=== PATIENT | male | born 1980 | race Two or more races ===

== ENCOUNTER 2017-07-23 06:12 | Emergency (ER) | payer SELFPAY ==
--- NOTE | 2017-07-23 06:37 | ER Document Report ---
ED General - General Chief Complaint: Chest Pain Stated Complaint: CHEST PAIN Time Seen by Provider: 07/23/17 06:28 Mode of Arrival: Wheelchair Information source: Patient Notes: 37 yr old male no previous medical hx presents with complaints of midsternal pressure 1 hour ago. pt states it is a 10/10 heaviness. denies any fevers or chills, admits to nausea. Pt moved here 3 weeks ago. Pt denies any previous similar episodes. TRAVEL OUTSIDE OF THE [place] IN LAST 30 DAYS: No - HPI Onset: Just prior to arrival Onset/Duration: Sudden Quality of pain: Pressure Severity: Severe Pain Level: 5 Associated symptoms: Chest pain, Nausea Exacerbated by: Denies Relieved by: Denies Similar symptoms previously: No Recently seen / treated by doctor: No - Related Data Allergies/Adverse Reactions: No Known Allergies Allergy (Unverified 07/23/17 06:22) Past Medical History - Social History Smoking Status: Current Every Day Smoker Cigarette use (# per day): Yes Chew tobacco use (# tins/day): No Smoking Education Provided: No Frequency of alcohol use: None Drug Abuse: None Family History: CAD - grandfather, Other Review of Systems - Review of Systems Notes: REVIEW OF SYSTEMS: CONSTITUTIONAL : Denies fever, chills, or sweats. Denies recent illness. EENT: Denies eye, ear, throat, or mouth pain or symptoms. Denies nasal or sinus congestion or discharge. Denies throat, tongue, or mouth swelling or difficulty swallowing. CARDIOVASCULAR: Denies chest pain. Denies palpitations or racing or irregular heart beat. Denies ankle edema. RESPIRATORY: Denies cough, cold, or chest congestion. Denies shortness of breath, difficulty breathing, or wheezing. GASTROINTESTINAL: Denies abdominal pain or distention. Denies nausea, vomiting , or diarrhea. Denies blood in vomitus, stools, or per rectum. Denies black, tarry stools. Denies constipation. GENITOURINARY: Denies difficulty urinating, painful urination, burning, frequency, blood in urine, or discharge. MUSCULOSKELETAL: Denies back or neck pain or stiffness. Denies joint pain or swelling. SKIN: Denies rash, lesions or sores. HEMATOLOGIC : Denies easy bruising or bleeding. LYMPHATIC: Denies swollen, enlarged glands. NEUROLOGICAL: Denies confusion or altered mental status. Denies passing out or loss of consciousness. Denies dizziness or lightheadedness. Denies headache. Denies weakness or paralysis or loss of use of either side. Denies problems with gait or speech. Denies sensory loss, numbness, or tingling. Denies seizures. PSYCHIATRIC: Denies anxiety or stress. Denies depression, suicidal ideation, or homicidal ideation. ALL OTHER SYSTEMS REVIEWED AND NEGATIVE. Dictation was performed using [employer] voice recognition software PHYSICAL EXAMINATION: GENERAL: Well-appearing, well-nourished and in no acute distress. HEAD: Atraumatic, normocephalic. EYES: Pupils equal round and reactive to light, extraocular movements intact, sclera anicteric, conjunctiva are normal. ENT: Nares patent, oropharynx clear without exudates. Moist mucous membranes. NECK: Normal range of motion, supple without lymphadenopathy LUNGS: Breath sounds clear to auscultation bilaterally and equal. No wheezes rales or rhonchi. HEART: Regular rate and rhythm without murmurs ABDOMEN: Soft, nontender, nondistended abdomen. No guarding, no rebound. No masses appreciated. Musculoskeletal: Normal range of motion, no pitting or edema. No cyanosis. NEUROLOGICAL: Cranial nerves grossly intact. Normal speech, normal gait. Normal sensory, motor exams PSYCH: Normal mood, normal affect. SKIN: Warm, Dry, normal turgor, no rashes or lesions noted. Physical Exam - Vital signs Vitals: Pulse Resp BP Pulse Ox 66 20 128/95 H 99 07/23/17 06:22 07/23/17 06:22 07/23/17 06:22 07/23/17 06:22 Course - Re-evaluation Re-evalutation: 07/23/17 06:34 Upon receiving ekg i immediately called a stemi alert, pt evaluated, stemi meds ordered [facility] paged 07/23/17 06:48 Dr longo called back and acepted patient for transfer tnk, aspirin, lovenox, nitro and plavix given , - Vital Signs Vital signs: Temp Pulse Resp BP Pulse Ox 66 20 128/95 H 99 07/23/17 06:22 07/23/17 06:22 07/23/17 06:22 07/23/17 06:22 - Laboratory Result Diagrams: 07/23/17 06:25 07/23/17 06:25 Laboratory results interpreted by me: 07/23/17 06:25 RDW 14.7 H Lymphocytes % 46.0 H Critical Care Note - Critical Care Note Total time excluding time spent on procedures (mins): 31 Comments: minutes of critical care time spent in direct contact evaluating and reevaluating the patient, treating symptoms, reviewing labs and studies and speaking with family and consultants excluding any procedures Discharge - Discharge Clinical Impression: STEMI (ST elevation myocardial infarction) Qualifiers: Involved coronary artery: LAD coronary artery Qualified Code(s): I21.02 - ST elevation (STEMI) myocardial infarction involving left anterior descending coronary artery Condition: Critical Disposition: [facility]
[2017-07-23] MEDS ORDERED: ASPIRIN 81 MG TABLET, CHEWABLE ONE ×2 (06:39→09:20)
[2017-07-23] MEDS ORDERED: ASPIRIN 81 MG TABLET, CHEWABLE PO ONE (06:40)
[2017-07-23] MEDS ORDERED: MORPHINE SULFATE 10 MG/ML INJ ONE (06:48)
[2017-07-23 06:49] LABS: ABSOLUTE BASOPHILS # (AUTO) 0.1 10^3/uL (0.0-0.2); ABSOLUTE EOSINOPHILS # (AUTO) 0.2 10^3/uL (0.0-0.6); ABSOLUTE LYMPHOCYTES (AUTO) 4.5 10^3/uL (0.5-4.7); ABSOLUTE MONOCYTES (AUTO) 0.8 10^3/uL (0.1-1.4); ABSOLUTE NEUT (AUTO) 4.1 10^3/uL (1.7-8.2); BASOPHILS % (AUTO) 1.1 % (0-2); EOSINOPHILS % (AUTO) 2.5 % (0-6); HEMATOCRIT 48.5 % (37.9-51.0); HEMOGLOBIN 16.2 g/dL (13.5-17.0); HGB HCT DIFFERENCE 0.1; MEAN CORPUSCULAR HEMOGLOBIN 29.7 pg (27.0-33.4); MEAN CORPUSCULAR HGB CONC 33.4 g/dL (32.0-36.0); MEAN CORPUSCULAR VOLUME 89 fl (80-97); MONOCYTES % (AUTO) 8.3 % (3-13); RED BLOOD COUNT 5.44 10^6/uL (4.35-5.55); RED CELL DISTRIBUTION WIDTH 14.7 % (11.5-14.0); SEGMENTED NEUTROPHILS % (AUTO) 42.1 % (42-78); WHITE BLOOD COUNT 9.8 10^3/uL (4.0-10.5)
[2017-07-23 06:50] LABS: PROTHROMBIN TIME 11.8 SEC (11.4-15.4)
[2017-07-23 06:59] LABS: ALANINE AMINOTRANSFERASE 57 U/L (21-72); ALBUMIN 4.7 g/dL (3.5-5.0); ALKALINE PHOSPHATASE 88 U/L (38-126); ASPARTATE AMINO TRANSFERASE 36 U/L (17-59); BILIRUBIN,DIRECT 0.3 mg/dL (0.0-0.4); BILIRUBIN,TOTAL 0.4 mg/dL (0.2-1.3); BLOOD UREA NITROGEN 12 mg/dL (7-20); CALCIUM 9.7 mg/dL (8.4-10.2); CARBON DIOXIDE 22 mmol/L (22-30); CREATINE KINASE 147 U/L (55-170); CREATININE RESULT 0.87 mg/dL (0.52-1.25); GLUCOSE 163 mg/dL (75-110); POTASSIUM 3.7 mmol/L (3.6-5.0); TOTAL PROTEIN 7.7 g/dL (6.3-8.2)
[2017-07-23 07:07] LABS: ANION GAP 19 (5-19); CHLORIDE 103 mmol/L (98-107); SODIUM 143.6 mmol/L (137-145)
[2017-07-23 07:09] VITALS: BP 133/108
[2017-07-23 07:17] LABS: CREATINE KINASE MB 1.21 ng/mL (<4.55); TROPONIN I 0.03 ng/mL
--- NOTE | 2017-07-23 08:35 | RADIOLOGY REPORT (SQ) ---
EXAM DESCRIPTION: CHEST SINGLE VIEW COMPLETED DATE/TIME: 07/23/2017 6:47 am REASON FOR STUDY: STEMI COMPARISON: None. EXAM PARAMETERS: NUMBER OF VIEWS: One view. TECHNIQUE: Single frontal radiographic view of the chest acquired. RADIATION DOSE: NA LIMITATIONS: None. FINDINGS: LUNGS AND PLEURA: No opacities, masses or pneumothorax. No pleural effusion. MEDIASTINUM AND HILAR STRUCTURES: No masses. Contour normal. HEART AND VASCULAR STRUCTURES: Heart normal in size. Normal vasculature. BONES: No acute findings. HARDWARE: Defibrillator pads and EKG leads over the chest. OTHER: No other significant finding. IMPRESSION: NO ACUTE RADIOGRAPHIC FINDING IN THE CHEST. TECHNICAL DOCUMENTATION: JOB ID: [id number] [employer]- All Rights Reserved
--- NOTE | 2017-07-23 08:46 | EKG REPORT ---
SEVERITY:- ABNORMAL ECG - SINUS RHYTHM CONSIDER ANTEROLATERAL INJURY, EARLY ACUTE INFARCT VS LVH VS ACUTE PERICARDITIS, CLINICAL CORRELATION NEEDED BORDERLINE PROLONGED QT INTERVAL : Confirmed by: Ke Ozuna 23-Jul-2017 08:45:46
--- NOTE | 2017-07-23 08:48 | EKG REPORT ---
SEVERITY:- ABNORMAL ECG - SINUS RHYTHM ANTEROLATERAL INJURY, EARLY ACUTE INFARCT VS ACUTE PERICARDITIS, CLINICAL CORRELATION REQUIRED PROLONGED QT INTERVAL : Confirmed by: Ke Ozuna 23-Jul-2017 08:48:06
--- NOTE | 2017-07-23 08:50 | EKG REPORT ---
SEVERITY:- ABNORMAL ECG - SINUS ARRHYTHMIA, RATE 47-66 ANTEROLATERAL INJURY, EARLY ACUTE INFARCT WITH RECIPROCAL ST DEPRESSION INFERIOR LEADS. : Confirmed by: Ke Ozuna 23-Jul-2017 08:49:31
--- NOTE | 2017-07-23 08:51 | EKG REPORT ---
SEVERITY:- ABNORMAL ECG - SINUS RHYTHM PEDRO LUIS SEPTAL AND LATERAL INJURY, PROBABLE EARLY ACUTE INFARCT : Confirmed by: Ke Ozuna 23-Jul-2017 08:50:35
[2017-07-23] MEDS ORDERED: ENOXAPARIN SODIUM INJ 30 MG/0.3 ML DISP.SYRIN ONE (09:20)
[2017-07-23] MEDS ORDERED: TENECTEPLASE INJ 50 MG KIT IV ONE (09:20)
[2017-07-23] MEDS ORDERED: CLOPIDOGREL BISULFATE 300 MG TABLET ONE (09:20)
[2017-07-23] MEDS ORDERED: NITROGLYCERIN 0.4 MG/TAB 25 TAB/BOTTLE ONE (09:20)
== END 2017-07-23 07:05 | disposition short-term general hospital (02) ==
LOC: ER 06:12
DX: I21.02 ST elevation (STEMI) myocardial infarction involving left anterior descending coronary artery (principal); R07.89 Other chest pain; R11.0 Nausea; F17.210 Nicotine dependence, cigarettes, uncomplicated; Z82.49 Family history of ischemic heart disease and other diseases of the circulatory system
CPT/HCPCS: 93005; 99291; 96374; 96375; 36415; 82553; 82550; 85025; 85610; 80053; 84484; 71010; 93010; J3101; J3490; J2270; J1650